=== PATIENT | male | born 1945 | race Caucasian/White ===

== ENCOUNTER 2022-03-21 13:55 | Emergency (ER) | payer OTHER ==
[~2022-03-21] VITALS: Ht 177.8 cm; Wt 59.0 kg
[2022-03-21] MEDS ORDERED: ALBUTEROL SULFATE 2.5 MG/3 ML NEBU NEB ONE ×2 (14:15→18:45)
[2022-03-21] MEDS ORDERED: IPRATROPIUM BROMIDE 0.5 MG/2.5 ML NEBU NEB ONE ×2 (14:15→18:45)
[2022-03-21] MEDS ORDERED: methylPREDNISolone SOD SUCC 125 MG/2 ML VIAL IV ONE (14:15)
[2022-03-21] MEDS ORDERED: ALBUTEROL SULFATE 2.5 MG/3 ML NEBU ONE ×2 (14:19→18:44)
[2022-03-21] MEDS ORDERED: IPRATROPIUM BROMIDE 0.5 MG/2.5 ML NEBU ONE ×2 (14:19→18:44)
[2022-03-21 14:43] LABS: HEMATOCRIT 43.1 % (36.7-47.1); MEAN CORPUSCULAR HEMOGLOBIN 29.8 uug (23.8-33.4); MEAN CORPUSCULAR VOLUME 92.3 fL (73.0-96.2); PLATELET COUNT (AUTO) 342 K/uL (152-348)
[2022-03-21] MEDS ORDERED: methylPREDNISolone SOD SUCC 125 MG/2 ML VIAL ONE (14:45)
--- NOTE | 2022-03-21 14:55 | NUR ---
PT SEEN AND EVALUATED BY DR JACKSON. MEDICATED PER MD ORDER. BREATHING TX RENDERED BY RT. O2 VIA NC AT 3LPM MAINTAINED.
[2022-03-21 15:01] LABS: ALANINE AMINOTRANSFERASE 21 U/L (16-63); ALKALINE PHOSPHATASE 77 U/L (50-136); ASPARTATE AMINOTRANSFERASE 14 U/L (15-37); BILIRUBIN,DIRECT 0.1 mg/dL (0.0-0.2); BILIRUBIN,TOTAL 0.4 mg/dL (0.2-1.0); CARBON DIOXIDE 32 mmol/L (21-32); CHLORIDE 104 mmol/L (98-107); CREATININE 1.1 mg/dL (0.6-1.3); GLUCOSE 102 mg/dL (74-106); LIPASE 57 U/L (73-393); POTASSIUM 4.4 mmol/L (3.5-5.1); TOTAL PROTEIN, SERUM 7.6 g/dL (6.4-8.2); UREA NITROGEN, BLOOD 20 mg/dL (7-18)
[2022-03-21] MEDS ORDERED: CEFTRIAXONE 1 G in IV DEXTROSE 5% 50 ML IV ONE (15:30)
[2022-03-21] MEDS ORDERED: AZITHROMYCIN 250 MG TABLET PO ONE (15:30)
[2022-03-21] MEDS ORDERED: AZITHROMYCIN 250 MG TABLET ONE (15:33)
[2022-03-21] MEDS ORDERED: CEFTRIAXONE /D5W 50ML IVPB **ER PYXIS IV ONE (15:34)
--- NOTE | 2022-03-21 19:03 | NUR ---
REPORT GIVEN TO BONIFACIO TOPETE RN
--- NOTE | 2022-03-21 20:00 | NUR ---
[facility] called back and states patient will be possibly going to [facility]. Waiting for transfer information.
[2022-03-21 20:38] LABS: *BILIRUBIN,URIN NEGATIVE (NEGATIVE); *BLOOD, URINE NEGATIVE (NEGATIVE); *CLARITY,URINE CLEAR (CLEAR); *COLOR,URINE YELLOW (YELLOW); *KETONES,URINE TRACE (NEGATIVE); *UROBILINOGEN,URINE 0.2 E.U./dl (NORMAL); LEUKOCYTE ESTERASE ,URINE NEGATIVE (NEGATIVE); NITRITE, URINE NEGATIVE (NEGATIVE); UGLUCOSE NEGATIVE (NEGATIVE)
--- NOTE | 2022-03-21 22:18 | NUR ---
[facility] CALLED BACK WITH TRANSFER INFO. PATIENT WILL BE GOING TO [facility] ROOM 307. CALL FOR REPORT IS . ACCEPTING MD IS DR FRYE.
--- NOTE | 2022-03-21 22:25 | NUR ---
[facility] CALLED BACK WITH ETA PICK. [facility] WILL REAL ESTATE SALESPERSON PATIENT AT [phone].
--- NOTE | 2022-03-22 02:30 | NUR ---
GAVE SBAR REPORT TO VIRY, NURSE FROM [facility].
--- NOTE | 2022-03-22 05:57 | NUR ---
Gave SBAR report to [facility] ambulance unit 800 who will take patient to [facility].
== END 2022-03-22 06:26 | disposition short-term general hospital (02) ==
LOC: ER 13:55
DX: J44.1 Chronic obstructive pulmonary disease with (acute) exacerbation (principal); J44.0 Chronic obstructive pulmonary disease with (acute) lower respiratory infection; J18.9 Pneumonia, unspecified organism; F17.210 Nicotine dependence, cigarettes, uncomplicated; R09.02 Hypoxemia; Z20.822 Contact with and (suspected) exposure to COVID-19
CPT/HCPCS: 99291; 96365; 96375; 87426; 80076; 80048; 81003; 83880; 83690; 85025; 87400; 87040 ×2; 84484; 36415; 93005 ×2; 71045; 83605; 94640 ×2; J0696; J2930; J3590; Q0144